=== PATIENT | female | born 1965 | race Caucasian/White ===

== ENCOUNTER 2017-10-12 16:24 | Emergency (ER) | payer OTHER ==
[~2017-10-12] VITALS: Ht 167.6 cm; Wt 65.8 kg
== END 2017-10-12 20:17 | disposition home or self-care (01) ==
LOC: ED 16:24
DX: S61.211A Laceration without foreign body of left index finger without damage to nail, initial encounter (principal); Z90.710 Acquired absence of both cervix and uterus; Z79.899 Other long term (current) drug therapy; Z88.1 Allergy status to other antibiotic agents; Z88.8 Allergy status to other drugs, medicaments and biological substances; W29.3XXA Contact with powered garden and outdoor hand tools and machinery, initial encounter; Y93.89 Activity, other specified; Y92.89 Other specified places as the place of occurrence of the external cause; Y99.9 Unspecified external cause status

== ENCOUNTER 2024-09-22 03:42 | Emergency (ER) | payer SELFPAY ==
[~2024-09-22] VITALS: Ht 167.6 cm; Wt 68.0 kg
[~2024-09-22 03:42] MED LIST: BACTRIM DS 8001 TA1 PO; ESTRACE1 M1 PO; KEFLEX500 MG PO; NORCO 325 MG-51 TAB PO; ROBAXIN750 MG PO; ULTRAM50 MG PO; VICODIN 5/500 505 MG PO
[2024-09-22] MEDS ORDERED: Bacitracin Zinc 14 GM TUBE T ONE (03:55)
== END 2024-09-22 04:07 | disposition home or self-care (01) ==
LOC: ED 03:42
DX: T63.461A Toxic effect of venom of wasps, accidental (unintentional), initial encounter (principal); M25.572 Pain in left ankle and joints of left foot; Z88.2 Allergy status to sulfonamides; Z79.899 Other long term (current) drug therapy; Z90.711 Acquired absence of uterus with remaining cervical stump; Y92.89 Other specified places as the place of occurrence of the external cause